=== PATIENT | female | born 1955 | race Caucasian/White ===

== ENCOUNTER 2018-07-13 14:09 | Outpatient (CLI) | payer BC | END 2018-07-13 14:10 | disposition home or self-care (01) | LOC: BICMAMMO 14:09 | PROVIDERS: ATTEND Physician Assistant | DX: Z12.31 Encounter for screening mammogram for malignant neoplasm of breast (principal); M85.80 Other specified disorders of bone density and structure, unspecified site; M81.0 Age-related osteoporosis without current pathological fracture | CPT/HCPCS: 77063; 77067; 77080 ==

== ENCOUNTER 2019-10-12 13:20 | Outpatient (CLI) | payer BC ==
--- NOTE | 2019-10-12 14:13 | MMO ---
Bilateral MAMMO Bilat Screen [facility]. CLINICAL HISTORY: Patient is 64 years old and is seen for screening. The patient has no family history of breast cancer. The patient has no personal history of cancer. The patient has a history of right Excisional Biopsy in November, - benign and left Excisional Biopsy in 1999 - benign. VIEWS: The views performed were: bilateral craniocaudal with tomosynthesis and bilateral mediolateral oblique with tomosynthesis. FILMS COMPARED: The present examination has been compared to prior imaging studies performed at [facility] on 03/08/2014, 06/12/2015, 06/23/2017 and 07/13/2018. This study has been interpreted with the assistance of computer-aided detection. MAMMOGRAM FINDINGS: There are scattered fibroglandular densities. There are benign appearing calcifications seen in both breasts. There are no suspicious masses, suspicious calcifications, or new areas of architectural distortion. IMPRESSION: THERE IS NO MAMMOGRAPHIC EVIDENCE OF MALIGNANCY. A ROUTINE FOLLOW-UP MAMMOGRAM IN 1 YEAR IS RECOMMENDED. THE RESULTS OF THIS EXAM WERE SENT TO THE PATIENT. ACR BI-RADS Category 2 - Benign finding MAMMOGRAPHY NOTE: 1. A negative mammogram report should not delay a biopsy if a dominant of clinically suspicious mass is present. 2. Approximately 10% to 15% of breast cancers are not detected by mammography. 3. Adenosis and dense breasts may obscure an underlying neoplasm. Reported by: CARLIE ALVARADO MD Electonically Signed: [id number]
== END 2019-10-12 13:21 | disposition home or self-care (01) ==
LOC: BICMAMMO 13:20
PROVIDERS: ATTEND Physician Assistant
DX: Z12.31 Encounter for screening mammogram for malignant neoplasm of breast (principal)
CPT/HCPCS: 77063; 77067

== ENCOUNTER 2020-10-14 13:33 | Outpatient (CLI) | payer BC ==
--- NOTE | 2020-10-14 14:11 | BD ---
EXAM: Bone densitometry using DEXA HISTORY: 65 yo female. Screening for postmenopausal osteoporosis FINDINGS: L1--bone mineral density 0.942 g/sq cm; T score -0.4 ; Z score 1.1 L2--bone mineral density 1.075 g/sq cm; T score 0.4 ; Z score 2.1 L3--bone mineral density 0.976 g/sq cm; T score -1.0 ; Z score 0.8 L4--bone mineral density 0.899 g/sq cm; T score -1.5 ; Z score 0.3 Total L1-L4--bone mineral density 0.968 g/sq cm; T score -0.7 ; Z score 1.0 Left femoral neck--bone mineral density0.586; T score -2.4 ; Z score -0.9 Total proximal left femur--bone mineral density 0.831; T score -0.9 ; Z score 0.3 IMPRESSION: Osteopenia
--- NOTE | 2020-10-14 15:57 | MMO ---
Bilateral MAMMO Bilat Screen [facility]. CLINICAL HISTORY: Patient is 65 years old and is seen for screening. The patient has no family history of breast cancer. The patient has no personal history of cancer. The patient has a history of right Excisional Biopsy in November, - benign and left Excisional Biopsy in 1999 - benign. VIEWS: The views performed were: bilateral craniocaudal with tomosynthesis and bilateral mediolateral oblique with tomosynthesis. FILMS COMPARED: The present examination has been compared to prior imaging studies performed at [facility] on 06/12/2015, 06/23/2017, 07/13/2018 and 10/12/2019. This study has been interpreted with the assistance of computer-aided detection. MAMMOGRAM FINDINGS: There are scattered fibroglandular densities. Benign calcifications are noted bilaterally. There are stable right post-operative changes. There are no suspicious masses, suspicious calcifications, or new areas of architectural distortion. IMPRESSION: THERE IS NO MAMMOGRAPHIC EVIDENCE OF MALIGNANCY. A ROUTINE FOLLOW-UP MAMMOGRAM IN 1 YEAR IS RECOMMENDED. THE RESULTS OF THIS EXAM WERE SENT TO THE PATIENT. ACR BI-RADS Category 2 - Benign finding MAMMOGRAPHY NOTE: 1. A negative mammogram report should not delay a biopsy if a dominant of clinically suspicious mass is present. 2. Approximately 10% to 15% of breast cancers are not detected by mammography. 3. Adenosis and dense breasts may obscure an underlying neoplasm. Reported by: SHAWN CASTILLO MD Electonically Signed: [id number]
== END 2020-10-14 13:34 | disposition home or self-care (01) ==
LOC: BICMAMMO 13:33
PROVIDERS: ATTEND Physician Assistant
DX: Z12.31 Encounter for screening mammogram for malignant neoplasm of breast (principal); M85.89 Other specified disorders of bone density and structure, multiple sites; Z91.89 Other specified personal risk factors, not elsewhere classified
CPT/HCPCS: 77063; 77067; 77080

== ENCOUNTER 2021-01-15 09:27 | Outpatient (CLI) | payer BC ==
--- NOTE | 2021-01-15 10:03 | RAD ---
RADIOGRAPH CHEST 2 VIEWS: DATE: 01/15/2021 HISTORY: 65-year-old female with chest pain and dyspnea FINDINGS: There is no airspace density, pulmonary edema, pleural effusion, pneumothorax, or cardiomegaly. IMPRESSION: No acute cardiopulmonary findings.
== END 2021-01-15 09:28 | disposition home or self-care (01) ==
LOC: BICRAD 09:27
PROVIDERS: ATTEND Physician Assistant
DX: R07.9 Chest pain, unspecified (principal); R06.02 Shortness of breath; M54.6 Pain in thoracic spine
CPT/HCPCS: 71046

== ENCOUNTER 2021-12-02 13:50 | Outpatient (CLI) | payer BC, MEDICARE | END 2021-12-02 13:51 | disposition home or self-care (01) | LOC: BICMAMMO 13:50 | PROVIDERS: ATTEND Physician Assistant | DX: Z12.31 Encounter for screening mammogram for malignant neoplasm of breast (principal); Z91.89 Other specified personal risk factors, not elsewhere classified | CPT/HCPCS: 77063; 77067 ==

== ENCOUNTER 2022-07-02 20:11 | Inpatient (IN) | payer BC, MEDICARE ==
[2022-07-02] MEDS ORDERED: Ondansetron PF 4 MG/2 ML Vial ONE (20:45)
[2022-07-02] MEDS ORDERED: Fentanyl 100 MCG/2 ML VIAL ONE (20:45)
[2022-07-02] MEDS ORDERED: Midazolam HCl 2 mg/2 ml Vial ONE (20:45)
[2022-07-02] MEDS ORDERED: Ketorolac Tromethamine 30 MG/ML VIAL ONE (20:45)
[2022-07-02 21:37] LABS: #Eosinphils 0.1 thou/uL (0.0-0.7); #Lymphocytes 2.6 thou/uL (1.20-3.40); #Monocytes 0.6 thou/uL (0.11-0.59); #Neutrophils 8.1 thou/uL (1.40-6.50); %Basophils 0.3 % (0.0-1.0); %Lymphocytes 22.8 % (21.0-51.0); %Monocytes 5.3 % (0.0-10.0); %Neutrophils 70.6 % (42.0-75.0); Hemoglobin 12.3 g/dL (12.0-16.0); Mean Corpuscular Hemoglobin 31.7 pg (27.0-31.0); Mean Corpuscular Volume 96.2 fL (78.0-98.0); Mean Platelet Volume 7.8 fL (7.4-10.4); Platelet Count 249 thou/uL (130-400); RBC Distribution Width 11.8 % (11.5-14.5); Red Blood Cell (RBC) Count 3.87 mill/uL (4.20-5.40); White Blood Cell (WBC) Count 11.4 thou/uL (4.8-10.8)
[2022-07-02 21:43] LABS: Bilirubin Negative (Negative); Blood, Urine Trace (Negative); Clarity Clear (Clear); Glucose, Urine (Dipstick) Normal (Negative); Ketone, Urine Negative (Negative); Leukocyte Negative Leu/uL (Negative); Nitrite Negative (Negative); Protein, Urine (Dipstick) Negative (Neg-Trace); RBC/HPF 0-3 HPF (0-3); Specific Gravity, Urine 1.011 (1.002-1.036); Squamous Epithelial 0-3 HPF (0-3); Urobilinogen Normal mg/dL (Less than 2); WBC/HPF 0-3 HPF (0-3); pH, Urine 6.5 (5.0-9.0)
[2022-07-02 21:44] LABS: Bacteria/HPF 1+ HPF (None Seen)
[2022-07-02 21:52] LABS: PTT 32.3 sec (22.9-36.1); Prothrombin Time 12.9 sec (12.0-14.7)
[2022-07-02 21:55] LABS: ALT (SGPT) 15 U/L (8-55); AST (SGOT) 28 U/L (5-34); Albumin 4.1 g/dL (3.4-4.8); Alkaline Phosphatase 91 U/L (40-110); Anion Gap 14 mmol/L (10-20); BUN (Urea Nitrogen) 20 mg/dL (9.8-20.1); Bilirubin, Total 0.2 mg/dL (0.2-1.2); CK (CPK) 250 U/L (29-168); Calc. Creatinine Clearance 0 mL/min (70-130); Carbon Dioxide 24 mmol/L (23-31); Chloride 105 mmol/L (98-107); Estimated GFR 73; Globulin 3.1 g/dL (2.4-3.5); Glucose 106 mg/dL (80-115); Protein, Total 7.2 g/dL (5.8-8.1); Sodium 139 mmol/L (136-145)
[2022-07-02 22:06] LABS: SARS-CoV-2 NAA Rapid Test Not Detected (NotDetected)
[2022-07-02] MEDS ORDERED: Ondansetron ODT 4 MG TAB PO PRN (22:34)
[2022-07-02] MEDS ORDERED: Dextrose 5% in Water 1,000 ML IV PRN (22:34)
[2022-07-02] MEDS ORDERED: hydrALAZINE 20 MG/ML VIAL SLOW IVP PRN (22:34)
[2022-07-02] MEDS ORDERED: Dextrose 50% Abboject 50 ML SYRINGE SLOW IVP PRN (22:34)
[2022-07-02] MEDS ORDERED: Promethazine HCl 25 MG/ML VIAL IM PRN (22:34)
[2022-07-02] MEDS ORDERED: Morphine 4 MG/ML VIAL SLOW IVP PRN (22:34)
[2022-07-02] MEDS ORDERED: Ondansetron PF 4 MG/2 ML Vial IVP PRN (22:34)
[2022-07-02] MEDS ORDERED: Morphine 2 MG/ML VIAL SLOW IVP PRN (22:34)
[2022-07-02 22:50] LABS: Phosphorus 3.4 mg/dL (2.3-4.7)
[2022-07-02 22:51] LABS: Amphetamine Not Detected (NotDetected); Barbiturates Screen Not Detected (NotDetected); Benzodiazepine Screen Not Detected (NotDetected); Cocaine Metabolite Screen Not Detected (NotDetected); Methadone Not Detected (NotDetected); Methamphetamine Not Detected (NotDetected); Opiate Screen Detected (NotDetected); Oxycodone Screen Not Detected (NotDetected); Phencyclidine (PCP) Not Detected (NotDetected); THC/Cannabinoid Screen Not Detected (NotDetected); Tricyclic Screen Detected (NotDetected)
[2022-07-02 22:54] LABS: Alcohol Less than 10 mg/dL (Less than 10); Magnesium 1.9 mg/dL (1.6-2.6)
[2022-07-02] MEDS ORDERED: Sodium Chloride 0.9% 1,000 ML IV SCH (23:55)
[2022-07-02] MEDS: Gabapentin 100 MG CAP PO SCH (23:57)
[2022-07-02] MEDS: Acetaminophen 500 MG TAB PO SCH (23:57)
[2022-07-02] MEDS: Ketorolac Tromethamine 30 MG/ML VIAL IVP SCH (23:58)
[2022-07-03 00:38] VITALS: BMI 30.2
[2022-07-03] MEDS ORDERED: diphenhydrAMINE 25 MG CAP PO PRN (04:36)
[2022-07-03] MEDS ORDERED: diphenhydrAMINE 25 MG in Sodium Chloride 0.9% 50 ML IVPB SCH (04:45)
[2022-07-03] MEDS: Nicotine 14 MG PATCH TD SCH (04:57)
[2022-07-03] MEDS: Acetaminophen 500 MG TAB PO SCH ×4 (04:59→23:28)
[2022-07-03] MEDS ORDERED: diphenhydrAMINE 50 MG/ML VIAL IVP SCH (05:00)
[2022-07-03] MEDS: traMADol HCl 50 MG TAB PO SCH ×5 (05:00→23:27)
[2022-07-03] MEDS: Ketorolac Tromethamine 30 MG/ML VIAL IVP SCH ×4 (05:01→23:28)
[2022-07-03] MEDS ORDERED: fentaNYL Citrate/PF 100 MCG/2 ML SYRINGE ONE (07:07)
[2022-07-03] MEDS ORDERED: Sodium Chloride 0.9% 100 ML ONE (07:52)
[2022-07-03] MEDS ORDERED: CEFAZOLIN 2 GM VIAL ONE (07:52)
[2022-07-03] MEDS: Famotidine 20 MG TAB PO SCH ×2 (07:54→21:09)
[2022-07-03] MEDS: Gabapentin 100 MG CAP PO SCH ×3 (07:54→23:27)
[2022-07-03] MEDS ORDERED: Midazolam HCl 2 mg/2 ml Vial ONE (07:58)
[2022-07-03] MEDS ORDERED: Famotidine/PF 20 mg/2ml Vial ONE (07:58)
[2022-07-03] MEDS ORDERED: Ondansetron PF 4 MG/2 ML Vial ONE (08:05)
[2022-07-03] MEDS ORDERED: Lidocaine 1% PF 5 ML VIAL ONE (08:05)
[2022-07-03] MEDS ORDERED: ePHEDrine 50 MG/ML VIAL ONE (08:05)
[2022-07-03] MEDS ORDERED: Phenylephrine 10 MG/ML VIAL ONE (08:05)
[2022-07-03] MEDS ORDERED: Dexamethasone 20 MG/5 ML VIAL ONE (08:05)
[2022-07-03] MEDS ORDERED: Promethazine HCl 25 MG/ML VIAL IVPB PRN (10:20)
[2022-07-03] MEDS ORDERED: Fentanyl 100 MCG/2 ML VIAL ONE ×2 (10:20→11:25)
[2022-07-03] MEDS ORDERED: HYDROmorphone 2 MG/ML VIAL SLOW IVP PRN (10:20)
[2022-07-03] MEDS ORDERED: Promethazine HCl 25 MG/ML VIAL IM PRN (10:20)
[2022-07-03] MEDS ORDERED: Ondansetron HCl/PF 4 MG/2 ML Vial IVP PRN (10:20)
[2022-07-03] MEDS ORDERED: HYDROmorphone 0.5 MG/0.5 ML SYRINGE ONE ×2 (10:38→10:58)
[2022-07-03] MEDS: CEFAZOLIN 2 GM in Sodium Chloride 0.9% 100 ML IVPB SCH ×2 (13:18→21:10)
[2022-07-03] MEDS: Morphine 4 MG/ML VIAL SLOW IVP PRN ×2 (13:23→21:04)
[2022-07-03] MEDS: Cyclobenzaprine 10 MG TAB PO PRN ×2 (13:23→23:28)
[2022-07-03] MEDS ORDERED: Simvastatin 20 MG TAB PO SCH (21:00)
[2022-07-03] MEDS: Atorvastatin Calcium 10 MG TAB PO SCH (23:25)
[2022-07-04] MEDS: Acetaminophen 500 MG TAB PO SCH ×4 (05:28→23:56)
[2022-07-04] MEDS: traMADol HCl 50 MG TAB PO SCH ×4 (05:29→23:56)
[2022-07-04] MEDS: Ketorolac Tromethamine 30 MG/ML VIAL IVP SCH ×4 (05:29→23:55)
[2022-07-04] MEDS: Nicotine 14 MG PATCH TD SCH (05:30)
[2022-07-04 05:55] LABS: #Eosinphils 0.1 thou/uL (0.0-0.7); #Lymphocytes 2.7 thou/uL (1.20-3.40); #Monocytes 0.5 thou/uL (0.11-0.59); #Neutrophils 4.6 thou/uL (1.40-6.50); %Basophils 0.3 % (0.0-1.0); %Eosinophils 1.3 % (0.0-10.0); %Lymphocytes 33.9 % (21.0-51.0); %Monocytes 6.6 % (0.0-10.0); %Neutrophils 57.9 % (42.0-75.0); Hemoglobin 10.1 g/dL (12.0-16.0); Mean Corpuscular HGB CONC 32.5 g/dL (32.0-36.0); Mean Corpuscular Hemoglobin 31.9 pg (27.0-31.0); Mean Corpuscular Volume 98.4 fL (78.0-98.0); Mean Platelet Volume 7.8 fL (7.4-10.4); Platelet Count 202 thou/uL (130-400); RBC Distribution Width 11.8 % (11.5-14.5); Red Blood Cell (RBC) Count 3.18 mill/uL (4.20-5.40)
[2022-07-04 06:13] LABS: Anion Gap 12 mmol/L (10-20); BUN (Urea Nitrogen) 11 mg/dL (9.8-20.1); Calc. Creatinine Clearance 88 mL/min (70-130); Carbon Dioxide 23 mmol/L (23-31); Chloride 110 mmol/L (98-107); Estimated GFR 86; Glucose 95 mg/dL (80-115); Magnesium 1.9 mg/dL (1.6-2.6); Potassium 4.6 mmol/L (3.5-5.1); Sodium 140 mmol/L (136-145)
[2022-07-04 06:24] LABS: Phosphorus 2.7 mg/dL (2.3-4.7)
[2022-07-04] MEDS ORDERED: PHOS-NAK 1 PKT PACK PO SCH (07:30)
[2022-07-04] MEDS: Gabapentin 100 MG CAP PO SCH ×3 (09:13→23:56)
[2022-07-04] MEDS: Loratadine 10 MG TAB PO SCH (09:14)
[2022-07-04] MEDS: Famotidine 20 MG TAB PO SCH ×2 (09:14→20:10)
[2022-07-04] MEDS: Lorazepam 0.5 MG TAB PO PRN (09:14)
[2022-07-04] MEDS: traMADol HCl 50 MG TAB PO PRN (10:47)
[2022-07-04] MEDS: Atorvastatin Calcium 10 MG TAB PO SCH (20:09)
[2022-07-05] MEDS: Acetaminophen 500 MG TAB PO SCH ×4 (05:46→23:58)
[2022-07-05] MEDS: Ketorolac Tromethamine 30 MG/ML VIAL IVP SCH (05:46)
[2022-07-05] MEDS: Nicotine 14 MG PATCH TD SCH (05:47)
[2022-07-05] MEDS: traMADol HCl 50 MG TAB PO SCH ×4 (05:47→23:59)
[2022-07-05 06:15] LABS: #Basophils 0.1 thou/uL (0.0-0.2); #Eosinphils 0.2 thou/uL (0.0-0.7); #Lymphocytes 2.8 thou/uL (1.20-3.40); #Monocytes 0.4 thou/uL (0.11-0.59); #Neutrophils 3.6 thou/uL (1.40-6.50); %Basophils 0.9 % (0.0-1.0); %Eosinophils 2.8 % (0.0-10.0); %Monocytes 6.3 % (0.0-10.0); %Neutrophils 50.1 % (42.0-75.0); Hemoglobin 10.1 g/dL (12.0-16.0); Mean Corpuscular HGB CONC 32.6 g/dL (32.0-36.0); Mean Corpuscular Hemoglobin 31.9 pg (27.0-31.0); Mean Corpuscular Volume 97.7 fL (78.0-98.0); Mean Platelet Volume 7.7 fL (7.4-10.4); Platelet Count 208 thou/uL (130-400); RBC Distribution Width 11.7 % (11.5-14.5); Red Blood Cell (RBC) Count 3.17 mill/uL (4.20-5.40); White Blood Cell (WBC) Count 7.1 thou/uL (4.8-10.8)
[2022-07-05 06:44] LABS: Anion Gap 11 mmol/L (10-20); BUN (Urea Nitrogen) 11 mg/dL (9.8-20.1); Calc. Creatinine Clearance 88 mL/min (70-130); Calcium 8.5 mg/dL (7.8-10.44); Carbon Dioxide 26 mmol/L (23-31); Chloride 109 mmol/L (98-107); Estimated GFR 86; Glucose 87 mg/dL (80-115); Magnesium 1.9 mg/dL (1.6-2.6); Phosphorus 2.2 mg/dL (2.3-4.7); Potassium 3.9 mmol/L (3.5-5.1); Sodium 142 mmol/L (136-145)
[2022-07-05] MEDS ORDERED: Ibuprofen 200 MG TAB PO PRN (07:35)
[2022-07-05] MEDS ORDERED: Sodium Phosphate 30 MMOL in Sodium Chloride 0.9% 250 ML 250 ML IVPB SCH (07:45)
[2022-07-05] MEDS: Lorazepam 0.5 MG TAB PO PRN (09:03)
[2022-07-05] MEDS: Loratadine 10 MG TAB PO SCH (09:04)
[2022-07-05] MEDS: Enoxaparin Sodium 40 MG/0.4 ML SYRINGE SC SCH (09:04)
[2022-07-05] MEDS: traMADol HCl 50 MG TAB PO PRN (09:04)
[2022-07-05] MEDS: Gabapentin 100 MG CAP PO SCH ×3 (09:05→23:58)
[2022-07-05] MEDS: Atorvastatin Calcium 10 MG TAB PO SCH (20:31)
[2022-07-06] MEDS: traMADol HCl 50 MG TAB PO SCH ×3 (05:04→18:32)
[2022-07-06] MEDS: Nicotine 14 MG PATCH TD SCH (05:04)
[2022-07-06] MEDS: Acetaminophen 500 MG TAB PO SCH ×3 (05:04→18:32)
[2022-07-06 05:28] LABS: #Eosinphils 0.2 thou/uL (0.0-0.7); #Lymphocytes 2.8 thou/uL (1.20-3.40); #Monocytes 0.5 thou/uL (0.11-0.59); #Neutrophils 4.6 thou/uL (1.40-6.50); %Basophils 0.2 % (0.0-1.0); %Eosinophils 2.1 % (0.0-10.0); %Lymphocytes 34.6 % (21.0-51.0); Hemoglobin 9.8 g/dL (12.0-16.0); Mean Corpuscular HGB CONC 32.9 g/dL (32.0-36.0); Mean Corpuscular Hemoglobin 31.7 pg (27.0-31.0); Mean Corpuscular Volume 96.4 fL (78.0-98.0); Mean Platelet Volume 7.5 fL (7.4-10.4); Platelet Count 225 thou/uL (130-400); RBC Distribution Width 11.6 % (11.5-14.5); Red Blood Cell (RBC) Count 3.07 mill/uL (4.20-5.40)
[2022-07-06] MEDS: Enoxaparin Sodium 40 MG/0.4 ML SYRINGE SC SCH (09:38)
[2022-07-06] MEDS: Gabapentin 100 MG CAP PO SCH ×2 (09:43→18:32)
[2022-07-06] MEDS: Loratadine 10 MG TAB PO SCH (09:44)
[2022-07-06] MEDS: Lorazepam 0.5 MG TAB PO PRN (11:47)
[2022-07-06] MEDS: traMADol HCl 50 MG TAB PO PRN (18:33)
[2022-07-06] MEDS: Atorvastatin Calcium 10 MG TAB PO SCH (20:38)
[2022-07-06] MEDS: Senokot S 8.6-50 MG TAB PO SCH (20:38)
[2022-07-07] MEDS: Gabapentin 100 MG CAP PO SCH ×2 (00:11→09:33)
[2022-07-07] MEDS: Acetaminophen 500 MG TAB PO SCH ×3 (00:11→11:48)
[2022-07-07] MEDS: traMADol HCl 50 MG TAB PO SCH ×3 (00:12→11:48)
[2022-07-07] MEDS: Nicotine 14 MG PATCH TD SCH (05:54)
[2022-07-07 08:25] VITALS: BP 108/63; TEMP 98
[2022-07-07] MEDS ORDERED: Polyethylene Glycol 3350 17 GM Packet PO SCH (09:00)
[2022-07-07] MEDS: Enoxaparin Sodium 40 MG/0.4 ML SYRINGE SC SCH (09:33)
[2022-07-07] MEDS: Loratadine 10 MG TAB PO SCH (09:34)
[2022-07-07] MEDS: Senokot S 8.6-50 MG TAB PO SCH (09:34)
== END 2022-07-07 12:07 | DRG 482 ==
LOC: ERS 20:11 → SURG A 22:34
PROVIDERS: ADMIT Surgery; ATTEND Surgery
PROC: 0QS904Z Reposition Left Femoral Shaft with Internal Fixation Device, Open Approach (ICD-10-PCS; principal; 2022-07-03)
DX: S72.392A Other fracture of shaft of left femur, initial encounter for closed fracture (principal); F41.9 Anxiety disorder, unspecified; F43.10 Post-traumatic stress disorder, unspecified; F31.9 Bipolar disorder, unspecified; F17.210 Nicotine dependence, cigarettes, uncomplicated; M81.0 Age-related osteoporosis without current pathological fracture; K21.9 Gastro-esophageal reflux disease without esophagitis; W19.XXXA Unspecified fall, initial encounter; E78.00 Pure hypercholesterolemia, unspecified; F10.20 Alcohol dependence, uncomplicated; E83.39 Other disorders of phosphorus metabolism; Z20.822 Contact with and (suspected) exposure to COVID-19; Z90.49 Acquired absence of other specified parts of digestive tract; Z90.710 Acquired absence of both cervix and uterus; Z91.012 Allergy to eggs; Y92.9 Unspecified place or not applicable
CPT/HCPCS: 36415; 51702; 71045; 72170; 76000; 80048; 80053; 80306; 80307; 81003; 81015; 82550; 83735; 84100; 85025; 85610; 85730; 86850; 86900; 86901; 93005; 96374; 96375; C1713; G0390; J0690; J1100; J1170; J1200; J1650; J1885; J2250; J2270; J2370; J2405; J3010; J3490; J7050; S0028; U0002

== ENCOUNTER 2022-08-11 08:08 | Outpatient (CLI) | payer BC, MEDICARE | END 2022-08-11 08:09 | disposition home or self-care (01) | LOC: BICMAMMO 08:08 | PROVIDERS: ATTEND Physician Assistant | DX: M81.0 Age-related osteoporosis without current pathological fracture (principal); S72.8X2A Other fracture of left femur, initial encounter for closed fracture; M85.89 Other specified disorders of bone density and structure, multiple sites | CPT/HCPCS: 77080 ==

== ENCOUNTER 2023-08-29 08:04 | Outpatient (CLI) | payer BC | END 2023-08-29 08:05 | disposition home or self-care (01) | LOC: BICMAMMO 08:04 | PROVIDERS: ATTEND Physician Assistant | DX: Z12.31 Encounter for screening mammogram for malignant neoplasm of breast (principal); N63.10 Unspecified lump in the right breast, unspecified quadrant; Z91.89 Other specified personal risk factors, not elsewhere classified | CPT/HCPCS: 77063; 77067 ==

== ENCOUNTER 2023-09-05 14:02 | Outpatient (CLI) | payer BC | END 2023-09-05 14:03 | disposition home or self-care (01) | LOC: BICULT 14:02 | PROVIDERS: ATTEND Physician Assistant | DX: N63.14 Unspecified lump in the right breast, lower inner quadrant (principal) ==

== ENCOUNTER 2023-12-14 12:12 | Outpatient (CLI) | payer BC | END 2023-12-14 12:13 | disposition home or self-care (01) | LOC: BICRAD 12:12 | PROVIDERS: ATTEND Family Medicine | DX: R05.9 Cough, unspecified (principal); J98.4 Other disorders of lung | CPT/HCPCS: 71046 ==

== ENCOUNTER 2023-12-14 13:10 | Inpatient (IN) | payer BC, MEDICARE ==
[~2023-12-14 13:10] MED LIST: Iopamidol-370 76% 500 ML MDV (1 ML CHARGE) ONE
[2023-12-14 14:54] LABS: #Eosinphils 0.1 thou/uL (0.0-0.7); #Monocytes 0.6 thou/uL (0.11-0.59); %Basophils 0.4 % (0.0-1.0); %Eosinophils 0.7 % (0.0-10.0); %Lymphocytes 30.6 % (21.0-51.0); %Monocytes 5.8 % (0.0-10.0); %Neutrophils 61.9 % (42.0-75.0); Hematocrit 38.1 % (36.0-47.0); Hemoglobin 12.7 g/dL (12.0-16.0); Mean Corpuscular HGB CONC 33.3 g/dL (32.0-36.0); Mean Corpuscular Hemoglobin 31.1 pg (27.0-31.0); Mean Corpuscular Volume 93.2 fl (78.0-98.0); Mean Platelet Volume 9.8 fL (7.4-10.4); Platelet Count 312 10x3/uL (130-400); RBC Distribution Width 13.1 % (11.5-14.5); Red Blood Cell (RBC) Count 4.09 mill/uL (4.20-5.40); White Blood Cell (WBC) Count 9.8 10x3/uL (4.8-10.8)
[2023-12-14 15:16] LABS: ALT (SGPT) 19 U/L (8-55); AST (SGOT) 30 U/L (5-34); Albumin 4.4 g/dL (3.4-4.8); Alkaline Phosphatase 100 U/L (40-110); Anion Gap 15 mmol/L (10-20); BUN (Urea Nitrogen) 18 mg/dL (9.8-20.1); Bilirubin, Total 0.3 mg/dL (0.2-1.2); Calc. Creatinine Clearance 0 mL/min (70-130); Calcium 9.9 mg/dL (7.8-10.44); Carbon Dioxide 24 mmol/L (23-31); Chloride 106 mmol/L (98-107); Estimated GFR 52; Globulin 3.6 g/dL (2.4-3.5); Glucose 107 mg/dL (80-115); Lipase 26 U/L (8-78); Sodium 141 mmol/L (136-145)
[2023-12-14 15:20] LABS: Troponin I Less than 0.010 ng/mL (< 0.028)
[2023-12-14] MEDS ORDERED: Morphine 4 MG/ML VIAL ONE (15:34)
[2023-12-14] MEDS ORDERED: Ondansetron PF 4 MG/2 ML Vial ONE (15:34)
[2023-12-14] MEDS ORDERED: Vancomycin (BATCH) 1.25 GM in Premix 1 BAG IVPB SCH (17:00)
[2023-12-14] MEDS ORDERED: Cefepime 2 GM VIAL ONE (17:22)
[2023-12-14] MEDS ORDERED: Acetaminophen 325 MG TAB PO PRN (17:43)
[2023-12-14] MEDS ORDERED: Ondansetron PF 4 MG/2 ML Vial IVP PRN (17:43)
[2023-12-14] MEDS ORDERED: Ipratropium/Albuterol 3 ML NEB NEB PRN (17:43)
[2023-12-14] MEDS ORDERED: Lorazepam 0.5 MG TAB PO PRN (17:43)
[2023-12-14] MEDS ORDERED: Lorazepam 1 MG TAB PO PRN (17:55)
[2023-12-14] MEDS ORDERED: Lorazepam 2 MG/ML VIAL IM PRN (17:55)
[2023-12-14] MEDS ORDERED: Electrolyte Replacement Protocol 1 EACH FS SCH (18:00)
[2023-12-14] MEDS: Nicotine 21 MG PATCH TD SCH (19:10)
[2023-12-14 19:13] LABS: Troponin I Less than 0.010 ng/mL (< 0.028)
[2023-12-14 22:39] VITALS: BMI 30.4
[2023-12-14] MEDS: Folic Acid 1 MG TAB PO SCH (23:06)
[2023-12-14] MEDS: Multivit, Therapeutic 1 TAB PO SCH (23:06)
[2023-12-14] MEDS: Atorvastatin Calcium 10 MG TAB PO SCH (23:07)
[2023-12-14] MEDS: QUEtiapine 200 MG TAB PO SCH (23:07)
[2023-12-14] MEDS: Morphine 4 MG/ML VIAL SLOW IVP PRN (23:08)
[2023-12-14 23:34] LABS: Troponin I Less than 0.010 ng/mL (< 0.028)
[2023-12-15 00:01] LABS: Legionella Urinary Ag Negative (Negative); Strep pneumo Urine Ag NEGATIVE (NEGATIVE)
[2023-12-15] MEDS: HYDROcodone/Acetaminophen 5/325 mg Tablet PO PRN ×3 (05:35→18:16)
[2023-12-15] MEDS ORDERED: Cefepime 2 GM in Sodium Chloride 0.9% 100 ML IVPB SCH (06:00)
[2023-12-15 06:28] LABS: Anion Gap 13 mmol/L (10-20); BUN (Urea Nitrogen) 16 mg/dL (9.8-20.1); Calc. Creatinine Clearance 75 mL/min (70-130); Calcium 8.9 mg/dL (7.8-10.44); Carbon Dioxide 24 mmol/L (23-31); Chloride 105 mmol/L (98-107); Estimated GFR 73; Glucose 88 mg/dL (80-115); Potassium 3.8 mmol/L (3.5-5.1); Sodium 138 mmol/L (136-145)
[2023-12-15 08:24] LABS: Magnesium 1.9 mg/dL (1.6-2.6)
[2023-12-15] MEDS ORDERED: Magnesium 2 GM/50 ML(in water) 2 GM in Premix 1 BAG IVPB SCH (08:45)
[2023-12-15] MEDS: Azithromycin 250 MG TAB PO SCH (08:53)
[2023-12-15] MEDS: Thiamine 100 MG TAB PO SCH (08:53)
[2023-12-15] MEDS: Sertraline 100 MG TAB PO SCH (08:53)
[2023-12-15] MEDS ORDERED: diphenhydrAMINE 50 MG/ML VIAL IVP SCH (11:45)
[2023-12-15] MEDS ORDERED: Loratadine 10 MG TAB PO SCH (11:45)
[2023-12-15] MEDS ORDERED: Vancomycin (BATCH) 1.5 GM in Premix 1 BAG IVPB SCH (13:00)
[2023-12-15 13:28] LABS: Prothrombin Time 13.3 sec (12.0-14.7)
[2023-12-15 13:29] LABS: PTT 28.3 sec (22.9-36.1)
[2023-12-15] MEDS ORDERED: Lorazepam 1 MG TAB PO PRN (17:55)
[2023-12-15] MEDS: diphenhydrAMINE 25 MG CAP PO PRN (18:13)
[2023-12-15] MEDS: Nicotine 21 MG PATCH TD SCH (18:14)
[2023-12-15] MEDS: QUEtiapine 200 MG TAB PO SCH (20:14)
[2023-12-15] MEDS: Folic Acid 1 MG TAB PO SCH (20:14)
[2023-12-15] MEDS: Atorvastatin Calcium 10 MG TAB PO SCH (20:14)
[2023-12-15] MEDS: Multivit, Therapeutic 1 TAB PO SCH (20:14)
[2023-12-16] MEDS ORDERED: fentaNYL 50 mcg/mL 1 mL Vial ONE (07:48)
[2023-12-16] MEDS ORDERED: Lidocaine 1% w/Epinephrine 1:100K 20 ML VIAL ONE (07:49)
[2023-12-16] MEDS ORDERED: Midazolam HCl 2 mg/2 ml Vial ONE (07:49)
[2023-12-16] MEDS ORDERED: Lidocaine 1% PF 5 ML VIAL ONE (07:49)
[2023-12-16] MEDS ORDERED: Sodium Bicarbonate 0.5 MEQ/ML SDV 10 ML ONE (07:49)
[2023-12-16] MEDS: Azithromycin 250 MG TAB PO SCH (08:06)
[2023-12-16] MEDS: diphenhydrAMINE 25 MG CAP PO PRN (08:06)
[2023-12-16] MEDS: Sertraline 100 MG TAB PO SCH (08:06)
[2023-12-16] MEDS: Thiamine 100 MG TAB PO SCH (08:07)
[2023-12-16] MEDS ORDERED: Morphine 2 MG/ML VIAL ONE (10:30)
[2023-12-16] MEDS: Morphine 4 MG/ML VIAL SLOW IVP PRN (10:42)
[2023-12-16] MEDS: HYDROcodone/Acetaminophen 5/325 mg Tablet PO PRN ×2 (13:54→23:09)
[2023-12-16] MEDS: methylPREDNISolone Sod Succ 40 MG VIAL IVP SCH ×2 (13:56→23:09)
[2023-12-16] MEDS ORDERED: Lorazepam 1 MG TAB PO PRN (17:55)
[2023-12-16] MEDS: Nicotine 21 MG PATCH TD SCH (17:58)
[2023-12-16] MEDS: Atorvastatin Calcium 10 MG TAB PO SCH (21:35)
[2023-12-16] MEDS: Multivit, Therapeutic 1 TAB PO SCH (21:35)
[2023-12-16] MEDS: QUEtiapine 200 MG TAB PO SCH (21:35)
[2023-12-16] MEDS: Folic Acid 1 MG TAB PO SCH (21:35)
[2023-12-17] MEDS: Azithromycin 250 MG TAB PO SCH (09:36)
[2023-12-17] MEDS: Thiamine 100 MG TAB PO SCH (09:36)
[2023-12-17] MEDS: diphenhydrAMINE 25 MG CAP PO PRN (09:37)
[2023-12-17] MEDS: Sertraline 100 MG TAB PO SCH (09:37)
[2023-12-17] MEDS: methylPREDNISolone Sod Succ 40 MG VIAL IVP SCH (12:03)
[2023-12-17 13:22] VITALS: BP 144/63; TEMP 97.4
[2023-12-17] MEDS ORDERED: Lorazepam 0.5 MG TAB PO PRN (17:55)
== END 2023-12-17 14:39 | disposition home or self-care (01) | DRG 204 ==
LOC: RAD 13:10 → ERS 13:10 → EDSTATUS 13:33 → INTOOBSV 17:23 → ERHOLD 17:23 → 2SW 21:55 → OBSVTOIN 12-16 12:57
PROVIDERS: ADMIT Family Medicine; ATTEND Family Medicine
PROC: 0BBF3ZX Excision of Right Lower Lung Lobe, Percutaneous Approach, Diagnostic (ICD-10-PCS; principal; 2023-12-16)
DX: R91.8 Other nonspecific abnormal finding of lung field (principal); J18.9 Pneumonia, unspecified organism; F17.210 Nicotine dependence, cigarettes, uncomplicated; F43.10 Post-traumatic stress disorder, unspecified; F41.9 Anxiety disorder, unspecified; K21.9 Gastro-esophageal reflux disease without esophagitis; F31.9 Bipolar disorder, unspecified; I25.10 Atherosclerotic heart disease of native coronary artery without angina pectoris; E78.00 Pure hypercholesterolemia, unspecified; Z98.890 Other specified postprocedural states; Z91.012 Allergy to eggs; Z90.49 Acquired absence of other specified parts of digestive tract; Z90.710 Acquired absence of both cervix and uterus; F10.10 Alcohol abuse, uncomplicated; L27.0 Generalized skin eruption due to drugs and medicaments taken internally
CPT/HCPCS: 32408; 36415; 71045; 71275; 77012; 80048; 80053; 83690; 83735; 83880; 84484; 85025; 85610; 85730; 87040; 87081; 87449; 87899; 88305; 88333; 88341; 88342; 93005; 96374; 96375; 96376; G0378; J0692; J1200; J2250; J2270; J2272; J2405; J2920; J3010; J3370; J3475; J3490; Q9967

== ENCOUNTER 2023-12-29 08:45 | Outpatient (CLI) | payer BC | END 2023-12-29 08:46 | LOC: PET 08:45 | PROVIDERS: ATTEND Internal Medicine | DX: C34.31 Malignant neoplasm of lower lobe, right bronchus or lung (principal) | CPT/HCPCS: 78815; A9552 ==

== ENCOUNTER 2024-01-03 13:18 | Outpatient (CLI) | payer BC | END 2024-01-03 13:19 | disposition home or self-care (01) | LOC: SCSMRI 13:18 | PROVIDERS: ATTEND Internal Medicine | DX: C34.90 Malignant neoplasm of unspecified part of unspecified bronchus or lung (principal) | CPT/HCPCS: 70553 ==

== ENCOUNTER 2024-01-09 09:59 | Outpatient (CLI) | payer BC ==
[2024-01-09 11:46] LABS: #Eosinphils 0.4 10x3/uL (0.0-0.5); #Monocytes 0.5 10x3/uL (0.0-1.1); #Neutrophils 5.8 10x3/uL (1.5-8.4); %Basophils 0.3 % (0.0-2.0); %Eosinophils 3.7 % (0.0-6.0); %Lymphocytes 30.9 % (18.0-47.0); %Monocytes 5.2 % (0.0-10.0); %Neutrophils 59.5 % (40.0-75.0); Hematocrit 37.6 % (34.9-44.5); Hemoglobin 12.9 g/dL (12.0-15.5); Mean Corpuscular HGB CONC 34.3 g/dL (32.0-36.0); Mean Corpuscular Hemoglobin 31.4 pg (27.0-33.0); Mean Corpuscular Volume 91.5 fl (81.6-98.3); Mean Platelet Volume 9.9 fl (7.4-10.4); Platelet Count 298 10x3/uL (150-450); RBC Distribution Width 12.8 % (11.5-14.5); Red Blood Cell (RBC) Count 4.11 10x6/uL (3.90-5.03); White Blood Cell (WBC) Count 9.7 10x3/uL (3.5-10.5)
[2024-01-09 13:53] LABS: Free T4 (Free Thyroxine) 0.81 ng/dL (0.70-1.48); Thyroid Stimulating Hormone 0.6054 uIU/mL (0.35-4.94)
== END 2024-01-09 10:00 | disposition home or self-care (01) ==
LOC: LABBT 09:59
PROVIDERS: ATTEND Student in an Organized Health Care Education/Training Program
DX: Z01.818 Encounter for other preprocedural examination (principal); C34.91 Malignant neoplasm of unspecified part of right bronchus or lung
CPT/HCPCS: 71046; 83615; 84439; 84443; 85025; 93005; 93010

== ENCOUNTER 2024-01-10 08:14 | Day surgery (SDC) | payer BC ==
[2024-01-09 10:38] VITALS: BMI 30.7
[2024-01-09 12:12] LABS: ALT (SGPT) 26 U/L (8-55); AST (SGOT) 38 U/L (5-34); Albumin 4.4 g/dL (3.4-4.8); Alkaline Phosphatase 109 U/L (40-110); Anion Gap 18 mmol/L (10-20); BUN (Urea Nitrogen) 17 mg/dL (9.8-20.1); Bilirubin, Total 0.4 mg/dL (0.2-1.2); Calc. Creatinine Clearance 0 mL/min (70-130); Calcium 9.6 mg/dL (7.8-10.44); Carbon Dioxide 21 mmol/L (23-31); Chloride 105 mmol/L (98-107); Estimated GFR 70; Globulin 3.5 g/dL (2.4-3.5); Glucose 86 mg/dL (80-115); Potassium 4.7 mmol/L (3.5-5.1); Protein, Total 7.9 g/dL (5.8-8.1); Sodium 139 mmol/L (136-145)
[2024-01-09 15:49] LABS: Uric Acid 5.9 mg/dL (2.6-6.0)
[2024-01-10] MEDS ORDERED: PROPOFOL 20 ML ONE (10:51)
[2024-01-10] MEDS ORDERED: fentaNYL PF 100 MCG/2 ML SYRINGE ONE ×2 (10:51→15:01)
[2024-01-10] MEDS ORDERED: SUGAMMADEX SODIUM 200 MG/2 ML VIAL ONE ×2 (10:51→15:05)
[2024-01-10] MEDS ORDERED: Midazolam HCl 2 mg/2 ml Vial ONE (10:51)
[2024-01-10] MEDS ORDERED: Rocuronium Bromide 10 MG/ML (10ML VIAL) ONE (10:52)
[2024-01-10] MEDS ORDERED: Ondansetron PF 4 MG/2 ML Vial ONE (10:52)
[2024-01-10] MEDS ORDERED: Lidocaine 2% PF 5 ML VIAL ONE (10:52)
[2024-01-10] MEDS ORDERED: Dexamethasone 20 MG/5 ML VIAL ONE (10:52)
[2024-01-10] MEDS ORDERED: CEFAZOLIN 1 GM VIAL ONE ×2 (12:04→13:50)
[2024-01-10] MEDS ORDERED: Calcium Chloride 1 GM/10 ML Abboject SYRINGE ONE (12:11)
[2024-01-10] MEDS ORDERED: Lidocaine 1% (PF) 30 ML VIAL ONE (13:18)
[2024-01-10] MEDS ORDERED: EPINEPHrine 1 MG/ML VIAL ONE (13:18)
[2024-01-10] MEDS ORDERED: Bupivacaine PF 0.5% 30 ML VIAL ONE (13:18)
[2024-01-10] MEDS ORDERED: Ondansetron HCl/PF 4 MG/2 ML Vial IVP PRN (15:03)
[2024-01-10] MEDS ORDERED: HYDROmorphone 2 MG/ML VIAL SLOW IVP PRN (15:03)
[2024-01-10] MEDS ORDERED: Promethazine HCl 25 MG/ML VIAL IM PRN (15:03)
[2024-01-10] MEDS ORDERED: fentaNYL 50 mcg/mL 1 mL Vial ONE (15:45)
[2024-01-10] MEDS ORDERED: HYDROcodone/Acetaminophen 5/325 mg Tablet ONE (15:55)
== END 2024-01-10 17:50 | disposition home or self-care (01) ==
LOC: SDC 08:14
PROVIDERS: ATTEND Student in an Organized Health Care Education/Training Program
PROC: 07B74ZX Excision of Thorax Lymphatic, Percutaneous Endoscopic Approach, Diagnostic (ICD-10-PCS; principal; 2024-01-10)
DX: C34.31 Malignant neoplasm of lower lobe, right bronchus or lung (principal); F17.210 Nicotine dependence, cigarettes, uncomplicated; F41.9 Anxiety disorder, unspecified; Z90.710 Acquired absence of both cervix and uterus; Z88.2 Allergy status to sulfonamides; Z91.012 Allergy to eggs; Z79.899 Other long term (current) drug therapy
CPT/HCPCS: 80053; 84550; 86850; 86900; 86901; 88305; C1713; J0171; J0665; J0690; J1100; J2001; J2250; J2405; J2704; J3010

== ENCOUNTER 2024-03-28 10:36 | Outpatient (CLI) | payer BC | END 2024-03-28 10:37 | disposition home or self-care (01) | LOC: LABBT 10:36 | PROVIDERS: ATTEND Student in an Organized Health Care Education/Training Program | DX: Z01.818 Encounter for other preprocedural examination (principal); C34.31 Malignant neoplasm of lower lobe, right bronchus or lung | CPT/HCPCS: 71046; 93005; 93010 ==

== ENCOUNTER 2024-03-28 11:00 | Inpatient (IN) | payer BC, MEDICARE ==
[2024-03-28 12:40] LABS: Hematocrit 32.9 % (34.9-44.5); Hemoglobin 11.1 g/dL (12.0-15.5); Mean Corpuscular HGB CONC 33.7 g/dL (32.0-36.0); Mean Corpuscular Hemoglobin 34.4 pg (27.0-33.0); Mean Corpuscular Volume 101.9 fl (81.6-98.3); Mean Platelet Volume 9.9 fl (7.4-10.4); Platelet Count 209 10x3/uL (150-450); RBC Distribution Width 19.2 % (11.5-14.5); Red Blood Cell (RBC) Count 3.23 10x6/uL (3.90-5.03); White Blood Cell (WBC) Count 5.6 10x3/uL (3.5-10.5)
[2024-03-28 13:11] LABS: Anion Gap 16 mmol/L (10-20); BUN (Urea Nitrogen) 19 mg/dL (9.8-20.1); Calc. Creatinine Clearance 0 mL/min (70-130); Calcium 9.6 mg/dL (7.8-10.44); Carbon Dioxide 21 mmol/L (23-31); Chloride 106 mmol/L (98-107); Estimated GFR 75; Glucose 103 mg/dL (80-115); Potassium 4.4 mmol/L (3.5-5.1); Sodium 139 mmol/L (136-145)
[2024-03-29] MEDS ORDERED: Bupivacaine 0.25% HCL 30 ML VIAL ONE (06:52)
[2024-03-29] MEDS ORDERED: EPINEPHrine 1 MG/ML VIAL ONE (06:52)
[2024-03-29] MEDS ORDERED: Midazolam HCl 2 mg/2 ml Vial ONE (06:57)
[2024-03-29] MEDS ORDERED: Ketamine In 0.9 % NaCl 50 MG/5 ML SYRINGE ONE (06:57)
[2024-03-29] MEDS ORDERED: fentaNYL PF 100 MCG/2 ML SYRINGE ONE ×2 (06:57→11:42)
[2024-03-29] MEDS ORDERED: ePHEDrine Sulfate 50 MG/10 ML VIAL ONE (06:57)
[2024-03-29] MEDS ORDERED: SUGAMMADEX SODIUM 200 MG/2 ML VIAL ONE (06:57)
[2024-03-29] MEDS ORDERED: PROPOFOL 20 ML ONE (06:57)
[2024-03-29] MEDS ORDERED: Ondansetron PF 4 MG/2 ML Vial ONE (06:58)
[2024-03-29] MEDS ORDERED: Rocuronium Bromide 10 MG/ML (10ML VIAL) ONE (06:58)
[2024-03-29] MEDS ORDERED: Lidocaine 2% PF 100 mg/5 ml Syringe ONE (06:58)
[2024-03-29] MEDS ORDERED: PHENYLEPHRINE-NS 100 MCG/ML 10 ML SYRINGE ONE ×3 (06:58→09:14)
[2024-03-29] MEDS ORDERED: Dexamethasone 20 MG/5 ML VIAL ONE (06:58)
[2024-03-29] MEDS ORDERED: Dexmedetomidine 200 MCG/2 ML VIAL ONE (06:58)
[2024-03-29] MEDS ORDERED: Clindamycin/D5W 900 mg/50 ml Premix Bag ONE (07:24)
[2024-03-29] MEDS ORDERED: Dexamethasone 4 mg/ml Vial ONE (08:10)
[2024-03-29] MEDS ORDERED: fentaNYL 50 mcg/mL 1 mL Vial ONE ×2 (10:57→15:25)
[2024-03-29] MEDS ORDERED: Ketorolac Tromethamine 30 MG (1 mL) VIAL ONE (11:26)
[2024-03-29] MEDS ORDERED: Promethazine HCl 25 MG/ML VIAL IM PRN (11:32)
[2024-03-29] MEDS ORDERED: Cyclobenzaprine 10 MG TAB PO PRN (11:32)
[2024-03-29] MEDS ORDERED: HYDROmorphone 0.5 MG/0.5 ML SYRINGE ONE (11:43)
[2024-03-29] MEDS ORDERED: Lidocaine 4% Patch TD SCH (12:00)
[2024-03-29] MEDS ORDERED: Acetaminophen 500 MG TAB ONE (13:48)
[2024-03-29] MEDS: Acetaminophen 500 MG TAB PO SCH (17:01)
[2024-03-29] MEDS: Ipratropium/Albuterol 3 ML NEB NEB SCH (17:02)
[2024-03-29] MEDS: Ketorolac Tromethamine 30 MG (1 mL) VIAL IVP SCH (17:02)
[2024-03-29] MEDS: Clindamycin/D5W 900 MG in Premix 1 BAG IVPB SCH (17:46)
[2024-03-29] MEDS: Sodium Chloride 0.9% 1,000 ML IV SCH (18:15)
[2024-03-29 18:42] VITALS: BMI 33.4
[2024-03-29] MEDS: Lidocaine 4% Patch TD SCH (18:43)
[2024-03-29] MEDS: traMADol HCl 50 MG TAB PO PRN (19:05)
[2024-03-29] MEDS: Gabapentin 300 MG CAP PO SCH (20:52)
[2024-03-29] MEDS: Nicotine 21 MG PATCH TOP SCH (20:53)
[2024-03-30] MEDS: Transdermal Patch Removal TOP SCH (01:09)
[2024-03-30 04:33] LABS: #Basophils Less than 0.03 10x3/uL (0.0-0.2); #Eosinphils Less than 0.03 10x3/uL (0.0-0.7); %Basophils 0.1 % (0.0-1.0); %Eosinophils 0.1 % (0.0-10.0); %Lymphocytes 17.6 % (21.0-51.0); %Monocytes 7.2 % (0.0-10.0); %Neutrophils 74.6 % (42.0-75.0); Hematocrit 28.1 % (36.0-47.0); Hemoglobin 9.1 g/dL (12.0-16.0); Mean Corpuscular HGB CONC 32.4 g/dL (32.0-36.0); Mean Corpuscular Hemoglobin 33.7 pg (27.0-31.0); Mean Corpuscular Volume 104.1 fL (78.0-98.0); Mean Platelet Volume 9.7 fL (7.4-10.4); Platelet Count 196 10x3/uL (130-400); RBC Distribution Width 19.1 % (11.5-14.5)
[2024-03-30 04:49] LABS: Anion Gap 12 mmol/L (10-20); BUN (Urea Nitrogen) 13 mg/dL (9.8-20.1); Calc. Creatinine Clearance 84 mL/min (70-130); Calcium 8.2 mg/dL (7.8-10.44); Carbon Dioxide 22 mmol/L (23-31); Chloride 110 mmol/L (98-107); Estimated GFR 78; Glucose 130 mg/dL (80-115); Sodium 140 mmol/L (136-145)
[2024-03-30] MEDS: Morphine 4 MG/ML VIAL SLOW IVP PRN (05:27)
[2024-03-30] MEDS: Acetylcysteine (MUCOMYST) 200 MG/ML (10 ML VIAL) NEB SCH (10:10)
[2024-03-30] MEDS: Cyclobenzaprine 10 MG TAB PO SCH ×2 (10:38→14:39)
[2024-03-30] MEDS: Ipratropium/Albuterol 3 ML NEB ONE (11:36)
[2024-03-30] MEDS: Ipratropium/Albuterol 3 ML NEB NEB SCH (14:03)
[2024-03-30] MEDS: Ipratropium Bromide 2.5 ml Neb NEB SCH (14:21)
[2024-03-30] MEDS: Furosemide 20 MG (2 mL) VIAL SLOW IVP SCH (14:42)
[2024-03-30] MEDS: Nicotine 21 MG PATCH TOP SCH (15:17)
[2024-03-30] MEDS: oxyCODONE 5 MG TAB PO PRN (19:40)
[2024-03-30] MEDS: Ondansetron PF 4 MG/2 ML Vial IVP PRN (22:15)
[2024-03-31] MEDS: Furosemide 20 MG (2 mL) VIAL SLOW IVP SCH (10:02)
[2024-03-31 11:46] VITALS: BP 123/64; TEMP 97.8
== END 2024-03-31 14:00 | disposition home or self-care (01) | DRG 165 ==
LOC: SURG A 03-29 06:11 → 2NO 03-29 16:38
PROVIDERS: ADMIT Student in an Organized Health Care Education/Training Program; ATTEND Student in an Organized Health Care Education/Training Program
PROC: 0BTF4ZZ Resection of Right Lower Lung Lobe, Percutaneous Endoscopic Approach (ICD-10-PCS; principal; 2024-03-29)
PROC: 07B74ZZ Excision of Thorax Lymphatic, Percutaneous Endoscopic Approach (ICD-10-PCS; 2024-03-29)
PROC: 8E0W4CZ Robotic Assisted Procedure of Trunk Region, Percutaneous Endoscopic Approach (ICD-10-PCS; 2024-03-29)
PROC: 3E033XZ Introduction of Vasopressor into Peripheral Vein, Percutaneous Approach (ICD-10-PCS; 2024-03-29)
DX: C34.31 Malignant neoplasm of lower lobe, right bronchus or lung (principal); F17.210 Nicotine dependence, cigarettes, uncomplicated; F41.9 Anxiety disorder, unspecified; Z98.890 Other specified postprocedural states; Z90.710 Acquired absence of both cervix and uterus; Z90.49 Acquired absence of other specified parts of digestive tract; Z82.49 Family history of ischemic heart disease and other diseases of the circulatory system; Z79.899 Other long term (current) drug therapy; Z79.51 Long term (current) use of inhaled steroids
CPT/HCPCS: 36415; 36416; 71045; 80048; 85025; 85027; 86850; 86900; 86901; 88305; 88309; 94640; A4314; C1713; C1776; J0171; J0665; J1100; J1170; J1642; J1885; J1940; J2001; J2250; J2270; J2405; J2704; J3010; J3490; J7608; J7620

== ENCOUNTER 2024-07-10 09:47 | Outpatient (CLI) | payer BC ==
[2024-07-10] MEDS ORDERED: Iopamidol 370 76% 100 ML VIAL ONE (13:09)
== END 2024-07-10 09:48 | disposition home or self-care (01) ==
LOC: BICCT 09:47
PROVIDERS: ATTEND Internal Medicine
DX: C34.31 Malignant neoplasm of lower lobe, right bronchus or lung (principal); I70.0 Atherosclerosis of aorta; I25.10 Atherosclerotic heart disease of native coronary artery without angina pectoris; Z98.890 Other specified postprocedural states
CPT/HCPCS: 71260; 74177; 82565; Q9967

== ENCOUNTER 2024-12-20 08:25 | Outpatient (CLI) | payer MEDICARE, OTHER ==
[2024-12-20] MEDS ORDERED: Iopamidol 370 76% 100 ML VIAL ONE (13:39)
== END 2024-12-20 08:26 | disposition home or self-care (01) ==
LOC: CT 08:25
PROVIDERS: ATTEND Internal Medicine
DX: C34.31 Malignant neoplasm of lower lobe, right bronchus or lung (principal); R91.8 Other nonspecific abnormal finding of lung field
CPT/HCPCS: 36415; 71260; 74177; 82565; Q9967

== ENCOUNTER 2025-03-14 09:50 | Outpatient (CLI) | payer MEDICARE, OTHER | END 2025-03-14 09:51 | disposition home or self-care (01) | LOC: BICMAMMO 09:50 | PROVIDERS: ATTEND Internal Medicine | DX: Z12.31 Encounter for screening mammogram for malignant neoplasm of breast (principal); Z85.118 Personal history of other malignant neoplasm of bronchus and lung; Z91.89 Other specified personal risk factors, not elsewhere classified | CPT/HCPCS: 77063; 77067 ==

== ENCOUNTER 2025-07-18 10:25 | Outpatient (CLI) | payer MEDICARE, OTHER | END 2025-07-18 10:26 | disposition home or self-care (01) | LOC: RAD 10:25 | PROVIDERS: ATTEND Internal Medicine Critical Care Medicine | DX: R06.00 Dyspnea, unspecified (principal) | CPT/HCPCS: 71046 ==

== ENCOUNTER 2025-08-27 09:43 | Outpatient (CLI) | payer MEDICARE, OTHER ==
[2025-08-27 10:10] LABS: Estimated GFR - POC 80.0
[2025-08-27] MEDS ORDERED: Iopamidol 370 76% 100 ML VIAL ONE (10:17)
== END 2025-08-27 09:44 | disposition home or self-care (01) ==
LOC: CT 09:43
PROVIDERS: ATTEND Internal Medicine
DX: C34.31 Malignant neoplasm of lower lobe, right bronchus or lung (principal)
CPT/HCPCS: 36415; 71260; 82565; Q9967

== ENCOUNTER 2025-10-08 12:09 | Outpatient (CLI) | payer MEDICARE, OTHER | END 2025-10-08 12:10 | disposition home or self-care (01) | LOC: BICMAMMO 12:09 | PROVIDERS: ATTEND Family Medicine | DX: Z13.820 Encounter for screening for osteoporosis (principal); M85.851 Other specified disorders of bone density and structure, right thigh; Z78.0 Asymptomatic menopausal state | CPT/HCPCS: 77080 ==